=== PATIENT | female | born 1990 | race Caucasian/White ===

== ENCOUNTER 2021-10-13 22:53 | Emergency (ER) | payer OTHER ==
[2021-10-13] MEDS ORDERED: Lorazepam 0.5 MG TAB ONE (23:31)
== END 2021-10-13 23:55 | disposition home or self-care (01) ==
LOC: NAV ERS 22:53
DX: F41.9 Anxiety disorder, unspecified (principal); Z87.891 Personal history of nicotine dependence
CPT/HCPCS: 99283